=== PATIENT | female | born 1965 | race Two or more races ===

== ENCOUNTER 2022-05-18 17:07 | Emergency (ER) | payer MEDICAID ==
[~2022-05-18] VITALS: Ht 162.6 cm; Wt 83.6 kg
[2022-05-18 18:14] VITALS: BP 167/73
[2022-05-18] MEDS ORDERED: albuterol 2.5 MG/3 ML nebule CONTNEB PRN (18:25)
[2022-05-18] MEDS ORDERED: triamcinolone acetonide 40mg/ml inj IM ONE (18:25)
[2022-05-18] MEDS ORDERED: mag hydrox/Alum hydrox/simeth 30ml oral suspension PO ONE (18:50)
[2022-05-18] MEDS ORDERED: LIDOcaine Viscous 15ml cup MM ONE (18:50)
[2022-05-18] MEDS ORDERED: sucralfate 1 gm tablet PO ONE (18:50)
[2022-05-18] MEDS ORDERED: SUCR1TAB34 PO (19:34)
== END 2022-05-18 19:50 | disposition home or self-care (01) ==
LOC: ER 17:09
DX: R10.13 Epigastric pain (principal); K21.9 Gastro-esophageal reflux disease without esophagitis; Z79.899 Other long term (current) drug therapy
CPT/HCPCS: 71045; 93005; 99283